=== PATIENT | male | born 1965 | race Caucasian/White ===

== ENCOUNTER 2017-02-23 01:27 | Day surgery (SDC) | payer OTHER ==
[~2017-02-23] VITALS: Ht 177.8 cm; Wt 104.0 kg
[~2017-02-23 01:27] MED LIST: AMOX-366 PO; BENZ200C44 PO
[2017-02-23] MEDS ORDERED: fentaNYL-PF 50 mCg/mL 2 mL Inj IVPUSH PRN (06:00)
[2017-02-23] MEDS ORDERED: Sodium Chloride LOK Flush 10 mL Syringe IV PRN (06:00)
[2017-02-23 07:35] VITALS: BP 131/81; PULSE 73; RESP 16; O2SAT 96
[2017-02-23] MEDS ORDERED: RAMI5CAP PO (07:35)
[2017-02-23] MEDS: 0.9% Sodium Chloride 1,000 ML IV SCH ×2 (08:23→08:32)
[2017-02-23 08:35] VITALS: BP 120/69; PULSE 77; RESP 16; O2SAT 97
[2017-02-23 08:45] VITALS: BP 122/75; PULSE 77; RESP 16; O2SAT 97
--- NOTE | 2017-02-23 09:14 | ENDO ---
[address] [address] ENDOSCOPY PROCEDURE PATIENT: HECTOR FLOYD : 1965 MR#: [id number] ADMIT: 02/23/2017 JOB ID: [id number] DATE: 02/23/2017 PREOPERATIVE DIAGNOSIS(ES): 1. Possible family history of colon cancer. 2. Colorectal cancer screening. POSTOPERATIVE DIAGNOSIS: Sigmoid diverticulosis. OPERATION: Colonoscopy to cecum. SURGEON: Antoine Duong MD. INDICATIONS: A 51-year-old male who is states that his father may have had colon cancer, but his father of a myocardial infarction. But, the patient has never had colorectal cancer screening. He has had rare episodes rectal bleeding, but no other colorectal symptoms. After obtaining informed consent, it was elected to proceed with a colonoscopy. FINDINGS: He had a good prep. The scope was advanced to the cecum with clear visualization of the appendiceal orifice. The entrance to the terminal ileum was identified, but I basically could not get the scope into it. The scope was withdrawn over 8 minutes 23 seconds. Retroflexed views of the rectum were obtained. The only abnormality was sigmoid diverticulosis. Retroflexed views of the rectum were normal. DESCRIPTION OF PROCEDURE: The procedure and sedation plan was discussed with the patient and nursing staff, and a procedural time-out was held. He received 3 mg of Versed and 75 mcg of fentanyl. The Olympus PCF H 180 AL video colonoscope was passed transanally, withdrawn over 8 minutes 23 seconds. CO2 insufflation was used. The patient tolerated the procedure well. No biopsies were taken and as stated above, retroflexed views of the rectum were obtained. IMPRESSION: 1. Sigmoid diverticulosis. 2. Otherwise normal colonoscopy to cecum. RECOMMENDATIONS: If the patient truly has a family history of colon cancer, I would recommend colonoscopy in five years. If he does not, 10 years. If the answer is unknown, he should have a colonoscopy in five years.
== END 2017-02-23 23:59 | disposition home or self-care (01) ==
LOC: END 01:27
PROVIDERS: ATTEND Surgery
DX: Z12.11 Encounter for screening for malignant neoplasm of colon (principal); Z80.0 Family history of malignant neoplasm of digestive organs; K57.30 Diverticulosis of large intestine without perforation or abscess without bleeding
CPT/HCPCS: 99153; G0105; G0500; J7030

== ENCOUNTER 2017-05-21 09:45 | Emergency (ER) | payer OTHER ==
[~2017-05-21] VITALS: Ht 180.3 cm; Wt 104.5 kg
[~2017-05-21 09:45] MED LIST changes: -AMOX-366 PO; -BENZ200C44 PO; +RAMI5CAP PO
[2017-05-21 09:48] VITALS: BP 147/81; PULSE 84; RESP 15; O2SAT 96
[2017-05-21] MEDS ORDERED: Bupivacaine-MPF 0.5% 30 mL Inj ONE (09:54)
--- NOTE | 2017-05-21 09:55 | ED.REPORT ---
HPI-Extremity Problem Upper Date of Service May 21, 2017 ED Provider: Nhi Deluna MD Patient is 51 year old male who presents to the ED due to a finger laceration on his left index finger. The patient reports that he was cutting sheetwood with a razor knife and his hand slipped. He thinks that his last tetanus was less than 10 years ago but more than 5 years. Nursing Notes Stated Complaint: FINGER LACERATION Chief Complaint: Extremity Trauma Nursing Notes Reviewed: Yes Allergies: Coded Allergies: No Known Drug Allergies (Verified Allergy, Unknown, 02/23/17) Scheduled Ramipril (Ramipril) 5 Mg Capsule 5 MG PO DAILY General Time Seen by MD: 09:54 Chief Complaint Finger injury left 2 Hx Obtained From: Patient Arrived By: Walk-in Onset Occurred: Just prior to arrival Symptom Duration: Since onset Location: : Finger left 2 Quality: Painful Immunizations: Tetanus w/in 5 - 10 yrs Similar Sx Previous: No Past Medical History Past Medical History heart valve leakage Smoking History Unknown if Ever Smoker Social History Other Social History: Good social support Ambulatory Status Independent Review of Systems Constitutional: Denies: Chills, Fever Musculoskeletal: Reports: Extremity pain (left index finger) Skin: Denies Bruising, Denies Itching, Denies Rash, Denies Swelling Complete sys rev & neg: except as marked. Physical Exam Initial Vital Signs Vital Signs (First) Date Time Temp Pulse Resp B/P Pulse Ox O2 Delivery O2 Flow Rate FiO2 05/21/17 09:48 36.5 84 15 147/81 96 Room Air Initial VS: Reviewed, Vital signs abnormal General/Constitutional: Awake, Alert, No acute distress Respiratory / Chest: Atraumatic, No respiratory distress Upper Extremity / MS: Atraumatic, Full range of motion Wrist / Hand: No swelling, No erythema 1cm diameter, circular avulsion of the skin of the left index finger full thickness near the center Skin: Color NL, No rash, Warm, Dry Neurologic: Oriented X3, Speech NL, No motor deficits, No sensory deficits Head / Eyes: Atraumatic, Normocephalic, PERRL, EOMI Lower Extremity / Pelvis / MS: Atraumatic, Full range of motion Psychiatric: Affect NL, Mood NL Procedures Laceration Management Laceration Management: steri-strips were placed Time: 10:15 Procedure Performed by: ED physician Consent / Setup / Site Prep: Consent from patient, Time-out performed Location of Wound: left index finger Wound Length: 1 cm (in diameter, circular avulsion of the skin) Local Anesthesia: Other (Sensorcaine .5% with epi) Digital Block: Yes Digit Involved: Index finger left Wound Preparation: Normal saline Irrigation: Copious Post-Procedure / Complications: Antibiotic oint applied, Dressing applied, No complications, Condition improved, Tolerated procedure well, Patient stable Re-Eval/Medical Decision Med Decision/Clinical Course The patient has an avulsion that is mostly partial-thickness skin his left index finger. The wound was irrigated and the flap tacked down with Steri- Strips. The patient does not have any sign of tendon or neurologic injury. Re-Evaluation/Progress #1: Time of Eval: 09:56 Re-Evaluation/Progress Note: Discussed plan for steri-strips. Patient understands and agrees to plan. Re-Evaluation/Progress #2: Time of Eval: 10:20 Re-Evaluation/Progress Note: Discussed plan for discharge. Patient understands and agrees to the plan. All questions were addressed. Counseled Regarding: Diagnosis, Need for follow-up, When/why to return to ED Discharge & Departure Impression: Primary Impression: Finger laceration Encounter type: initial encounter Qualified Code: S61.219A - Laceration without foreign body of unspecified finger without damage to nail, initial encounter Disposition: Home Discharge Condition All VS Reviewed: Yes Condition: Stable Patient Instructions: Finger Laceration (ED) Additional Instructions: Keep the steri- strips on for at least 5-7 days. You can pull them off if they are still on after 10 days. Keep the wound clean do not get the wound wet for 24 hours. Do not soak it. If you get it wet, try to pat it dry. You can take Tylenol as needed for pain. Follow up with your primary care physician in a week if your pain persists. Return to the emergency department if you develop any new or concerning symptoms including signs of infection; redness, swelling, pus drainage, fever or increasing pain. Referrals: Alexei Alonso MD (PCP) Scribe Attestation Portions of this note were transcribed by Junie Lou. I, Dr. Deluna personally performed the history, physical exam and medical decision-making; I reviewed and confirmed the accuracy of the information in the transcribed note. Signed by: Lisandra Pennington, 05/21/17 copies to: Alexei Alonso MD, Jena M MD May 21, 2017 09:55 Sarika Lou May 21, 2017 10:08
[2017-05-21] MEDS ORDERED: TdaP Vaccine 0.5 mL Inj IM ONE ×2 (10:15→10:20)
[2017-05-21 10:38] VITALS: BP 114/65; PULSE 80; RESP 16; O2SAT 96
== END 2017-05-21 10:39 | disposition home or self-care (01) ==
LOC: SED 09:45
DX: S61.211A Laceration without foreign body of left index finger without damage to nail, initial encounter (principal); W26.0XXA Contact with knife, initial encounter; Y93.89 Activity, other specified; Y92.89 Other specified places as the place of occurrence of the external cause; Y99.8 Other external cause status; Z23 Encounter for immunization